=== PATIENT | female | born 1995 ===

== ENCOUNTER 2020-09-24 11:09 | Emergency (ER) | payer SELFPAY ==
[~2020-09-24] VITALS: Ht 154.9 cm; Wt 63.0 kg
[2020-09-24 11:27] VITALS: BP 142/90
--- NOTE | 2020-09-24 11:54 | NUR ---
TURN DOWN MAN: URINE COLLECTED AND SENT TO LAB
[2020-09-24 12:07] LABS: BASOPHILS % (AUTO) 1 % (0-1); EOSINOPHILS % (AUTO) 1 % (1-7); LYMPHOCYTES % (AUTO) 28 % (22-44); MEAN CORPUSCULAR HEMOGLOBIN 32.4 pg (27.0-34.8); MEAN CORPUSCULAR HGB CONC 34.2 g/dL (32.4-35.8); MEAN PLATELET VOLUME 7.9 fL (7.4-10.4); MONOCYTES % (AUTO) 5 % (2-9); NEUTROPHILS % (AUTO) 65 % (42-75); PLATELET COUNT 283 x10^3/uL (130-400); RED BLOOD COUNT 4.71 x10^6/uL (3.82-5.3); RED CELL DISTRIBUTION WIDTH 13.3 % (9.6-15.2)
[2020-09-24 12:18] LABS: ALBUMIN 4.1 g/dL (3.4-5.0); CALCIUM 9.4 mg/dL (8.5-10.1); CHLORIDE 106 mmol/L (98-107)
[2020-09-24 12:23] LABS: CREATININE 0.56 mg/dL (0.55-1.02)
[2020-09-24 12:31] LABS: ANION GAP 5 mmol/L (5-15)
[2020-09-24 12:33] LABS: MICROSCOPIC INDICATED
--- NOTE | 2020-09-24 15:21 | NUR ---
TRAIGE TECH: NIL FOR VITALS
--- NOTE | 2020-09-24 16:47 | NUR ---
TRIAGE TECH: NIL X 3
== END 2020-09-24 16:56 | disposition left against medical advice (07) ==
LOC: ED 11:39
DX: N39.0 Urinary tract infection, site not specified (principal)
CPT/HCPCS: 36415; 80048; 81001; 82040; 84703; 85025; 87077; 87086; 87186; 99283